=== PATIENT | male | born 1970 | race Caucasian/White ===

== ENCOUNTER → 2023-11-22 15:49 | Outpatient (REF) | payer OTHER, SELFPAY | LOC: HWRAD 15:49 | PROVIDERS: ATTENDING PHYSICIAN Otolaryngology; FAMILY PHYSICIAN Internal Medicine | DX: H66.21 Chronic atticoantral suppurative otitis media, right ear (principal); H72.01 Central perforation of tympanic membrane, right ear; H90.A11 Conductive hearing loss, unilateral, right ear with restricted hearing on the contralateral side | CPT/HCPCS: 70480 ==

== ENCOUNTER 2024-04-30 06:24 | Day surgery (SDC) | payer OTHER, SELFPAY ==
[2024-04-17 09:00] VITALS: BMI 29.3
[2024-04-17 09:27] LABS: Hematocrit 43.3 % (39.0-52.0); Hemoglobin 14.8 g/dL (13.0-18.0); Mean Corp Hgb Conc. 34.2 g/dL (33.0-37.0); Mean Corpuscular Hgb 31.4 pg (27.0-31.0); Mean Corpuscular Volume 91.7 fL (80.0-94.0); Mean Platelet Volume 10.6 fL (7.4-10.4); Platelet Count 255 10^3/uL (130-400); Red Blood Cell Count 4.72 10^6/uL (4.70-6.10); Red Cell Dist. Width 11.8 % (11.5-14.5); White Blood Cell Count 5.4 10^3/uL (4.8-10.8)
[2024-04-30] VITALS (8 sets, daily range): BP systolic 89–138; BP diastolic 49–98; BMI 29.3
[2024-04-30] MEDS: NORMOSOL-R/PLASMALYTE-A 1000 IV (09:46)
== END 2024-04-30 13:23 | disposition home or self-care (01) ==
LOC: SDS 06:24
PROVIDERS: ATTENDING PHYSICIAN Otolaryngology; FAMILY PHYSICIAN Internal Medicine
DX: H72.91 Unspecified perforation of tympanic membrane, right ear (principal)
CPT/HCPCS: 69631; 36415; 85027; 93005

== ENCOUNTER → 2024-05-19 08:27 | Outpatient (REF) | payer OTHER, SELFPAY | LOC: HWRCS 08:27 | PROVIDERS: ATTENDING PHYSICIAN Internal Medicine Cardiovascular Disease | DX: R06.02 Shortness of breath (principal) | CPT/HCPCS: 93306 ==